=== PATIENT | male | born 1960 | race Two or more races ===

== ENCOUNTER 2017-04-29 12:07 | Emergency (ER) | payer OTHER ==
[2017-04-29 14:32] VITALS: BP 141/77
== END 2017-04-29 14:57 | disposition home or self-care (01) ==
LOC: ED 12:07
DX: J20.9 Acute bronchitis, unspecified (principal); E11.9 Type 2 diabetes mellitus without complications
CPT/HCPCS: J7512; J7613; J7644; Q0092

== ENCOUNTER 2017-05-27 13:54 | Emergency (ER) | payer OTHER ==
[~2017-05-27] VITALS: Ht 170.2 cm; Wt 117.7 kg
[2017-05-27 15:17] LABS: BASOPHIL % 0.4 % (0-2); PLATELET COUNT 227 x10^3mcL (130-400); RED CELL DISTRIBUTION WIDTH 13.3 % (11.5-14.5)
[2017-05-27 15:47] LABS: ALBUMIN 3.6 g/dL (3.4-5.0); ALKALINE PHOSPHATASE 65 U/L (46-116); ALT/SGPT 28 U/L (16-63); AST/SGOT 13 U/L (15-37); BILIRUBIN TOTAL 0.3 mg/dL (0.20-1.00); CALCIUM 8.7 mg/dL (8.5-10.1); CARBON DIOXIDE 25.4 mmol/L (21-32); CHLORIDE SERUM 104 mmol/L (98-107); CREATININE SERUM 1.1 mg/dL (0.7-1.3); GFR1 > 60 mL/min; GLUCOSE SERUM 202 mg/dL (74-106); POTASSIUM SERUM 3.6 mmol/L (3.5-5.1); SODIUM SERUM 141 mmol/L (136-145); TOTAL PROTEIN, SERUM 7.4 g/dL (6.4-8.2)
[2017-05-27 16:50] VITALS: BP 118/60
== END 2017-05-27 16:50 | disposition home or self-care (01) ==
LOC: ED 13:54
PROVIDERS: Emergency Medicine
DX: M54.2 Cervicalgia (principal); G44.209 Tension-type headache, unspecified, not intractable; E11.9 Type 2 diabetes mellitus without complications; R03.0 Elevated blood-pressure reading, without diagnosis of hypertension
CPT/HCPCS: J1885; J3010; J7040

== ENCOUNTER 2017-09-28 12:36 | Emergency (ER) | payer OTHER ==
[~2017-09-28] VITALS: Ht 170.2 cm; Wt 119.8 kg
[2017-09-28 13:16] VITALS: Ht 170.2 cm; Wt 119.8 kg
[2017-09-28 21:02] LABS: CALCIUM 8.5 mg/dL (8.5-10.1); CARBON DIOXIDE 26.3 mmol/L (21-32); CHLORIDE SERUM 107 mmol/L (98-107); CREATININE SERUM 0.8 mg/dL (0.7-1.3); GFR1 > 60 mL/min; GLUCOSE SERUM 105 mg/dL (74-106); POTASSIUM SERUM 3.5 mmol/L (3.5-5.1); SODIUM SERUM 142 mmol/L (136-145)
[2017-09-28 22:21] VITALS: BP 131/98
== END 2017-09-28 22:21 | disposition home or self-care (01) ==
LOC: ED 12:36
PROVIDERS: Emergency Medicine
DX: R51 Headache (principal); R42 Dizziness and giddiness; E11.9 Type 2 diabetes mellitus without complications; F32.9 Major depressive disorder, single episode, unspecified
CPT/HCPCS: J1885; J8597

== ENCOUNTER 2018-05-13 14:28 | Emergency (ER) | payer OTHER ==
[~2018-05-13] VITALS: Ht 177.8 cm; Wt 118.0 kg
[2018-05-13 14:38] VITALS: Ht 177.8 cm; Wt 118.0 kg
[2018-05-13 17:06] LABS: CALCIUM 8.7 mg/dL (8.5-10.1); CARBON DIOXIDE 25.7 mmol/L (21-32); CHLORIDE SERUM 104 mmol/L (98-107); GFR1 > 60 mL/min; GLUCOSE SERUM 125 mg/dL (74-106); POTASSIUM SERUM 3.9 mmol/L (3.5-5.1); SODIUM SERUM 138 mmol/L (136-145)
[2018-05-13 17:07] LABS: BASOPHIL % 0.3 % (0-2); RED CELL DISTRIBUTION WIDTH 12.8 % (11.5-14.5)
[2018-05-13 17:11] LABS: ALBUMIN 3.7 g/dL (3.4-5.0); ALKALINE PHOSPHATASE 66 U/L (46-116); ALT/SGPT 37 U/L (16-63); AST/SGOT 23 U/L (15-37); BILIRUBIN TOTAL 0.57 mg/dL (0.20-1.00); LIPASE 109 IU/L (73-393); PLATELET COUNT 229 x10^3mcL (130-400); TOTAL PROTEIN, SERUM 7.4 g/dL (6.4-8.2)
[2018-05-13 19:11] VITALS: BP 108/61
== END 2018-05-13 19:11 | disposition home or self-care (01) ==
LOC: ED 14:28
PROVIDERS: Emergency Medicine Emergency Medical Services
DX: T61.8X1A Toxic effect of other seafood, accidental (unintentional), initial encounter (principal); E11.9 Type 2 diabetes mellitus without complications; Y92.89 Other specified places as the place of occurrence of the external cause
CPT/HCPCS: J2270; J3490; Q0092

== ENCOUNTER 2018-08-02 08:54 | Emergency (ER) | payer OTHER ==
[~2018-08-02] VITALS: Ht 175.3 cm; Wt 118.4 kg
[2018-08-02 09:06] VITALS: Ht 175.3 cm; Wt 118.4 kg
[2018-08-02 10:25] VITALS: BP 131/84
== END 2018-08-02 11:05 | disposition home or self-care (01) ==
LOC: ED 08:54
DX: M17.12 Unilateral primary osteoarthritis, left knee (principal); F32.9 Major depressive disorder, single episode, unspecified; E11.9 Type 2 diabetes mellitus without complications
CPT/HCPCS: J1885

== ENCOUNTER 2019-06-20 08:57 | Emergency (ER) | payer OTHER ==
[~2019-06-20] VITALS: Ht 180.3 cm; Wt 121.1 kg
[2019-06-20 08:59] VITALS: Ht 180.3 cm; Wt 121.1 kg
[2019-06-20 10:36] VITALS: BP 130/72
== END 2019-06-20 10:36 | disposition home or self-care (01) ==
LOC: ED 08:57
DX: M25.511 Pain in right shoulder (principal); M17.12 Unilateral primary osteoarthritis, left knee; E11.9 Type 2 diabetes mellitus without complications; F32.9 Major depressive disorder, single episode, unspecified
CPT/HCPCS: J1885

== ENCOUNTER 2019-08-17 12:03 | Emergency (ER) | payer OTHER ==
[~2019-08-17] VITALS: Ht 180.3 cm; Wt 120.0 kg
[2019-08-17 12:27] VITALS: Ht 180.3 cm; Wt 120.0 kg
[2019-08-17 13:00] LABS: BASOPHIL % 0.7 % (0-2); PLATELET COUNT 202 x10^3mcL (130-400); RED CELL DISTRIBUTION WIDTH 13.4 % (11.5-14.5)
[2019-08-17 13:09] LABS: CALCIUM 8.4 mg/dL (8.5-10.1); CARBON DIOXIDE 25.7 mmol/L (21-32); CHLORIDE SERUM 107 mmol/L (98-107); GFR1 > 60 mL/min; GLUCOSE SERUM 153 mg/dL (74-106); POTASSIUM SERUM 4.1 mmol/L (3.5-5.1); SODIUM SERUM 142 mmol/L (136-145)
[2019-08-17 13:13] LABS: ALBUMIN 3.5 g/dL (3.4-5.0); ALKALINE PHOSPHATASE 63 U/L (46-116); ALT/SGPT 41 U/L (16-63); AST/SGOT 23 U/L (15-37); BILIRUBIN TOTAL 0.4 mg/dL (0.20-1.00); CHOLESTEROL 157 mg/dL (<200); PHOSPHOROUS 3.1 mg/dL (2.5-4.9); TOTAL PROTEIN, SERUM 7.3 g/dL (6.4-8.2); URIC ACID 7.4 mg/dL (3.5-7.2)
[2019-08-17 13:16] LABS: HDL CHOLESTEROL 33 mg/dL (40-60)
[2019-08-17 14:14] VITALS: BP 124/76
== END 2019-08-17 14:36 | disposition home or self-care (01) ==
LOC: ED 12:03
PROVIDERS: Emergency Medicine
DX: J18.9 Pneumonia, unspecified organism (principal); E11.9 Type 2 diabetes mellitus without complications; F32.9 Major depressive disorder, single episode, unspecified; M10.9 Gout, unspecified
CPT/HCPCS: 36415; J1885; Q0092

== ENCOUNTER 2019-12-17 10:19 | Emergency (ER) | payer OTHER ==
[~2019-12-17] VITALS: Ht 180.3 cm; Wt 119.3 kg
[2019-12-17 10:24] VITALS: BP 142/70; Ht 180.3 cm; Wt 119.3 kg
== END 2019-12-17 11:50 | disposition home or self-care (01) ==
LOC: ED 10:19
DX: S43.401A Unspecified sprain of right shoulder joint, initial encounter (principal); S83.91XA Sprain of unspecified site of right knee, initial encounter; G89.29 Other chronic pain; M54.9 Dorsalgia, unspecified; E11.9 Type 2 diabetes mellitus without complications; W01.0XXA Fall on same level from slipping, tripping and stumbling without subsequent striking against object, initial encounter; Y93.89 Activity, other specified; Y92.89 Other specified places as the place of occurrence of the external cause; Y99.8 Other external cause status
CPT/HCPCS: Q0092

== ENCOUNTER 2020-09-11 20:40 | Emergency (ER) | payer OTHER ==
[~2020-09-11] VITALS: Ht 180.3 cm; Wt 105.7 kg
[2020-09-11 21:00] VITALS: Ht 180.3 cm; Wt 105.7 kg
[2020-09-11 23:05] VITALS: BP 111/78
== END 2020-09-11 23:05 | disposition home or self-care (01) ==
LOC: ED 20:40
DX: S40.011A Contusion of right shoulder, initial encounter (principal); S39.012A Strain of muscle, fascia and tendon of lower back, initial encounter; V49.9XXA Car occupant (driver) (passenger) injured in unspecified traffic accident, initial encounter; Y93.I9 Activity, other involving external motion; Y92.413 State road as the place of occurrence of the external cause; Y99.8 Other external cause status